=== PATIENT | male | born 1960 | race African-American/Black ===

== ENCOUNTER 2025-05-28 18:39 | Emergency (ER) | payer MEDICAID ==
[~2025-05-28] VITALS: Ht 180.3 cm; Wt 66.0 kg
[2025-05-28 18:42] VITALS: BP 154/76; PULSE 90; RESP 18; TEMP 36.3; O2SAT 98
== END 2025-05-28 19:14 | disposition left against medical advice (07) ==
LOC: ER 18:39
DX: R55 Syncope and collapse (principal); R42 Dizziness and giddiness; Z53.21 Procedure and treatment not carried out due to patient leaving prior to being seen by health care provider